=== PATIENT | male | born 1950 | race Caucasian/White ===

== ENCOUNTER → 2017-02-22 | Outpatient (CLI) | payer OTHER ==
[~2017-02-22] MED LIST: AUGMENTIN 250250 MG GT; CALCITONIN-SAL3.7 ML NS; DUONEB DPS3 ML IH; DURAGESIC DPS100 MCG TD; LEVOTHYROXINE100 MCG PO; ROBITUSSIN100 MG/5 M GT; STOOL SOFT50 MG/5 ML GT; TYLENOL DPS325 MG GT; XANAX DPS1 MG PO; ZOFRAN4 MG SL
== END | disposition home or self-care (01) ==
LOC: RAD.S 09:02
PROC: 0HB4XZX Excision of Neck Skin, External Approach, Diagnostic (ICD-10-PCS; principal; 2017-02-22)
DX: C44.42 Squamous cell carcinoma of skin of scalp and neck (principal); R59.0 Localized enlarged lymph nodes